=== PATIENT | female | born 1950 | race American Indian/Alaskan Native ===

== ENCOUNTER 2017-08-27 21:29 | Emergency (ER) | payer MEDICARE, OTHER ==
[2017-08-27 21:46] VITALS: BMI 29.0
[2017-08-27 21:51] VITALS: BP 172/77; PULSE 79; RESP 18; TEMP 98.4; O2SAT 97
--- NOTE | 2017-08-27 22:02 | ED PDOC ---
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 Patient stated while crossing street, she tripped and fell down. Patient denies head injury, loc, syncope, back pain, neck pain, hip pain , dizziness, abrasion, or abnormal gait. (Carmelina Tenorio) Past Medical History - Provider Review Nursing Documentation Reviewed: Yes - Infectious Disease Hx of Infectious Diseases: None - Tetanus Immunization Tetanus Immunization: Unknown - Reproductive Menopause: Yes - Cardiac Hx Cardiac Disorders: Yes Hx Hypertension: Yes - Pulmonary Hx Respiratory Disorders: No - Neurological Hx Neurological Disorder: No - HEENT Hx HEENT Disorder: No - Renal Hx Renal Disorder: No - Endocrine/Metabolic Hx Endocrine Disorders: No - Hematological/Oncological Hx Blood Disorders: No - Integumentary Hx Dermatological Disorder: No - Musculoskeletal/Rheumatological Hx Musculoskeletal Disorders: No Hx Falls: No - Gastrointestinal Hx Gastrointestinal Disorders: No - Genitourinary/Gynecological Hx Genitourinary Disorders: Yes (1970 REMOVED CYST /VAGINAL AREA) - Psychiatric Hx Psychophysiologic Disorder: Yes (DRINKS ALCOHOL SOCIALLY) Hx Substance Use: No - Suicidal Assessment Feels Threatened In Home Enviroment: No <Carmelina Tenorio - Last Filed: 08/28/17 19:20> Family/Social History - Physician Review Nursing Documentation Reviewed: Yes Family/Social History: Other (noncontributory) Smoking Status: Never Smoked Hx Alcohol Use: Yes (SOCIALLY) Hx Substance Use: No Hx Substance Use Treatment: No <Carmelina Tenorio - Last Filed: 08/28/17 19:20> Allergies/Home Meds <Yazan Phipps - Last Filed: 08/27/17 22:32> <Carmelina Tenorio - Last Filed: 08/28/17 19:20> Allergies/Adverse Reactions: Allergies No Known Allergies Allergy (Verified 09/02/16 18:35) Home Medications: Home Meds Medication Instructions Recorded Confirmed Irbesartan/Hydrochlorothiazide 1 tab PO DAILY 03/12/13 08/27/17 [Avalide 12.5 mg-300 mg] Irbesartan/Hydrochlorothiazide 1 tab PO DAILY 08/27/17 08/27/17 [Avalide 150-12.5 mg Tablet] Review of Systems - Review of Systems Constitutional: Normal. absent: Fatigue, Weight Change, Fevers Eyes: Normal ENT: Normal Respiratory: Normal Cardiovascular: Normal Gastrointestinal: Normal Genitourinary Female: Normal Musculoskeletal: Other (hand pain and swelling) Skin: Normal Neurological: Normal Endocrine: Normal Hemo/Lymphatic: Normal Psychiatric: Normal <Personera P - Last Filed: 08/28/17 19:20> Physical Exam Temperature: Afebrile Blood Pressure: Normal Pulse: Regular Respiratory Rate: Normal Appearance: Positive for: Well-Appearing, Non-Toxic, Comfortable Pain Distress: None Mental Status: Positive for: Alert and Oriented X 3 - Systems Exam Head: Present: Atraumatic, Normocephalic, Other (no raccoon sign. No obregon sign) Pupils: Present: PERRL, Other (no hyphema) Extroacular Muscles: Present: EOMI. No: Entrapment Conjunctiva: Present: Normal Ears: Present: Normal, NORMAL TM, Normal Canal, Other (no hemotympanum). No: Erythema, TM Bulging, Fluid, TM Perf Mouth: Present: Moist Mucous Membranes Pharnyx: Present: Normal. No: ERYTHEMA, EXUDATE, TONSILS ENLARGED Neck: Present: Normal Range of Motion. No: Meningeal Signs, MIDLINE TENDERNESS , Paraspinal Tenderness Respiratory/Chest: Present: Clear to Auscultation, Good Air Exchange. No: Respiratory Distress, Accessory Muscle Use, Wheezes Cardiovascular: Present: Regular Rate and Rhythm, Normal S1, S2. No: Murmurs Back: Present: Normal Inspection Upper Extremity: Present: Normal Inspection, Normal ROM Lower Extremity: Present: Normal Inspection, Normal ROM Neurological: Present: GCS=15, CN II-XII Intact, Speech Normal Skin: Present: Warm, Dry, Normal Color. No: Rashes Psychiatric: Present: Alert, Oriented x 3, Normal Insight <Tenorio,Nahim P - Last Filed: 08/28/17 19:20> Vital Signs Temp Pulse Resp BP Pulse Ox 08/27/17 21:30 98.4 F 79 18 172/77 H 97 Medical Decision Making <Yazan Phipps - Last Filed: 08/27/17 22:32> Re-evaluation Time: 23:00 Reassessment Condition: Re-examined, Improved <Carmelina Tenorio - Last Filed: 08/28/17 19:20> ED Course and Treatment: 08/27/17 23:00 Re-evaluation. Patient feels better. Discussed results and plan with patient who expresses understanding. All questions answered and there is agreement with the plan to discharge home with instructions. Patient stable for discharge. Return if symptoms persist or worsen. 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 Patient was recommended to remove dorian bandage at bedtime, during sleep. Return to ED if pain worsen. ( Carmelina Tenorio) - RAD Interpretation Narrative RAD Interpretations (Text): 08/27/17 23:00 Hand x-rays: No Fx. (Carmelina Tenorio) Radiology Orders: 08/27/17 21:59 HAND RIGHT 3 VIEWS [RAD] Stat - Medication Orders Current Medication Orders: Discontinued Medications Ibuprofen (Motrin Tab) 600 mg PO STAT STA Stop: 08/27/17 22:55 Last Admin: 08/27/17 23:01 Dose: 600 mg - PA / OYSTER TONGER / Resident Statement OMARI has reviewed & agrees with the documentation as recorded. OMARI has examined the patient and agrees with the treatment plan. <Yazan Phipps - Last Filed: 08/27/17 22:32> Disposition/Present on Arrival <Yazan Phipps - Last Filed: 08/27/17 22:32> - Present on Arrival Any Indicators Present on Arrival: No History of DVT/PE: No History of Uncontrolled Diabetes: No Urinary Catheter: No History of Decub. Ulcer: No History Surgical Site Infection Following: None - Disposition Have Diagnosis and Disposition been Completed?: Yes Disposition Time: 23:01 Patient Plan: Discharge <Carmelina Tenorio - Last Filed: 08/28/17 19:20> - Disposition Diagnosis: Hand strain Disposition: HOME/ ROUTINE Condition: GOOD Discharge Instructions (ExitCare): Hand Sprain (ED) Additional Instructions: Call private doctor for follow up visit in 1-2 day. Apply ice pack on affected hand. Keep hand elevated, ice, rest, dorian bandage for at least 5 days. Remove dorian bandage at bedtime. Return to emergency if pain worsen. Prescriptions: Ibuprofen [Motrin] 600 mg PO Q8 PRN #20 tab PRN Reason: Pain, Severe (8-10) Referrals: [facility] Profile Req, [Non-Staff] - Follow up with primary Forms: [employer] (Yakut)
--- NOTE | 2017-08-28 08:47 | RAD ---
PROCEDURE: Right Hand Radiographs. HISTORY: pain s/p fall COMPARISON: None. FINDINGS: BONES: Normal. No fracture. JOINTS: Mild narrowing of the radiocarpal articulation which may reflect early radiocarpal osteoarthritis. There is osteoarthritis at the 1st [facility] articulation. The remaining joint spaces and articular surfaces appear preserved. SOFT TISSUES: Normal. OTHER FINDINGS: None. IMPRESSION: Osteoarthritis at [facility] 1. 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
== END 2017-08-27 23:07 | disposition home or self-care (01) ==
LOC: ED 21:29
DX: S66.911A Strain of unspecified muscle, fascia and tendon at wrist and hand level, right hand, initial encounter (principal); W01.0XXA Fall on same level from slipping, tripping and stumbling without subsequent striking against object, initial encounter; Y92.410 Unspecified street and highway as the place of occurrence of the external cause

== ENCOUNTER 2018-08-04 15:53 | Emergency (ER) | payer MEDICARE, OTHER ==
[2018-08-04 16:19] VITALS: BMI 28.8
--- NOTE | 2018-08-04 16:51 | ED PDOC ---
Arrival/HPI - General Chief Complaint: Back Pain Time Seen by Provider: 08/04/18 15:57 - History of Present Illness Narrative History of Present Illness (Text): 67 y/o F p/w back pain x 3 days. Pain is located in L lower back, radiates down buttocks, lateral thigh, and to lower leg. Pain is constant, sharp, severe. Denies fever, chills, numbness, motor weakness, urinary or bowel incontinence or retention, dysuria, urinary frequency, nausea, vomiting, abdominal pain. Took Aleve for pain yesterday which did help temporarily. Past Medical History - Infectious Disease Hx of Infectious Diseases: None - Tetanus Immunization Tetanus Immunization: Unknown - Cardiac Hx Cardiac Disorders: Yes Hx Hypertension: Yes - Pulmonary Hx Respiratory Disorders: No - Neurological Hx Neurological Disorder: No - HEENT Hx HEENT Disorder: No - Renal Hx Renal Disorder: No - Endocrine/Metabolic Hx Endocrine Disorders: No - Hematological/Oncological Hx Blood Disorders: No - Integumentary Hx Dermatological Disorder: No - Musculoskeletal/Rheumatological Hx Musculoskeletal Disorders: No Hx Falls: No - Gastrointestinal Hx Gastrointestinal Disorders: No - Genitourinary/Gynecological Hx Genitourinary Disorders: Yes (1970 REMOVED CYST /VAGINAL AREA) - Psychiatric Hx Psychophysiologic Disorder: Yes (DRINKS ALCOHOL SOCIALLY) Hx Substance Use: No - Anesthesia Hx Anesthesia: Yes Hx Anesthesia Reactions: No Hx Malignant Hyperthermia: No - Suicidal Assessment Feels Threatened In Home Enviroment: No Family/Social History Family/Social History: No Known Family HX Smoking Status: Never Smoked Hx Alcohol Use: Yes (SOCIALLY) Hx Substance Use: No Hx Substance Use Treatment: No Allergies/Home Meds Allergies/Adverse Reactions: Allergies No Known Allergies Allergy (Verified 08/04/18 16:18) Home Medications: Home Meds Medication Instructions Recorded Confirmed Irbesartan/Hydrochlorothiazide 1 tab PO DAILY 03/12/13 08/27/17 [Avalide 12.5 mg-300 mg] Irbesartan/Hydrochlorothiazide 1 tab PO DAILY 08/27/17 08/27/17 [Avalide 150-12.5 mg Tablet] Review of Systems - Physician Review All systems were reviewed & negative as marked: Yes - Review of Systems Constitutional: absent: Fevers Respiratory: absent: SOB Cardiovascular: absent: Chest Pain Physical Exam - Physical Exam Narrative Physical Exam (Text): Gen: NAD Head: NC/AT Eyes: PERRL ENT: MMM Neck: Supple Chest: No tenderness CV: Regular rate Lungs: No accessory muscle use Abd: Soft, NT Back: No midline tenderness. L lower back tenderness at superior iliac crest posteriorly. Skin: No rash Neuro: Motor 5/5 x 4. Sensation to light touch intact in bilateral legs and saddle area. Medical Decision Making ED Course and Treatment: XR shows no fracture or deformity. Toradol for pain. Continue NSAIDs at home, f/u PMD, return to ED for worsening pain, fever, vomiting, dyspnea, dysuria, numbness, weakness, urinary or bowel changes, or any other problem. - RAD Interpretation Radiology Orders: 08/04/18 16:42 Hip Left [HIP MIN 2V W/ PELVIS LT] [RAD] Stat - Medication Orders Current Medication Orders: Discontinued Medications Ketorolac Tromethamine (Toradol) 30 mg IM STAT STA Stop: 08/04/18 16:42 Disposition/Present on Arrival - Present on Arrival Any Indicators Present on Arrival: No History of DVT/PE: No History of Uncontrolled Diabetes: No Urinary Catheter: No History of Decub. Ulcer: No History Surgical Site Infection Following: None - Disposition Have Diagnosis and Disposition been Completed?: Yes Diagnosis: Sciatica Disposition: HOME/ ROUTINE Disposition Time: 17:05 Patient Plan: Discharge Patient Problems: Current Active Problems Problem Status Onset Sciatica Acute Condition: STABLE Discharge Instructions (ExitCare): Low Back Pain in Adults Prescriptions: Acetaminophen [Tylenol 325mg tab] 2 tab PO Q4H #30 tab Cyclobenzaprine [Cyclobenzaprine HCl] 1 tab PO Q8H #12 tab Ibuprofen [Motrin] 600 mg PO Q6 #25 tab Forms: [employer] (Tajik)
--- NOTE | 2018-08-04 18:04 | RAD ---
PROCEDURE: Left Hip X-ray Radiographs. HISTORY: L hip pain COMPARISON: None. FINDINGS: BONES: Normal. No fracture. JOINTS: Normal. SOFT TISSUES: Normal. OTHER FINDINGS: None. IMPRESSION: Normal left hip radiographs.
== END 2018-08-04 18:07 | disposition home or self-care (01) ==
LOC: ED 15:53
DX: M54.30 Sciatica, unspecified side (principal); I10 Essential (primary) hypertension
CPT/HCPCS: 73502; 96372; 99282; J1885